=== PATIENT | male | born 1970 | race Caucasian/White ===

== ENCOUNTER 2017-04-20 12:53 | Emergency (ER) | payer SELFPAY ==
[2017-04-20 13:19] VITALS: BP 132/91
[2017-04-20] MEDS ORDERED: HYDROCODONE/ACETAMINOPHEN 5-325 MG TABLET PO ONE (13:45)
--- NOTE | 2017-04-20 13:48 | ER Document Report ---
ED General - General Chief Complaint: Head Injury Stated Complaint: FALL/NECK PAIN Time Seen by Provider: 04/20/17 13:41 Mode of Arrival: Ambulatory Information source: Patient Notes: 46-year-old male presents with complaints of headache neck pain after mechanical fall yesterday at 8 PM. Patient notes he tripped on on steps striking his head, he admits to achiness in his neck. Patient has been ambulating with no difficulty denies any neurological deficits Patient denies any blood thinner use TRAVEL OUTSIDE OF THE [place] IN LAST 30 DAYS: No - HPI Onset: Yesterday Onset/Duration: Sudden Quality of pain: Achy Severity: Mild Pain Level: 1 Associated symptoms: Body/muscle aches, Headache Exacerbated by: Movement Relieved by: Denies Similar symptoms previously: Yes Recently seen / treated by doctor: Yes - Related Data Allergies/Adverse Reactions: No Known Allergies Allergy (Verified 05/05/12 15:56) Past Medical History - Social History Smoking Status: Current Every Day Smoker Cigarette use (# per day): Yes Chew tobacco use (# tins/day): No Smoking Education Provided: No Family History: Reviewed & Not Pertinent Patient has suicidal ideation: No Patient has homicidal ideation: No - Past Medical History Cardiac Medical History: Reports: Hx Hypertension Pulmonary Medical History: Reports: Hx COPD Renal/ Medical History: Denies: Hx Peritoneal Dialysis Past Surgical History: Reports: Hx Orthopedic Surgery - back, face, neck - Immunizations Hx Diphtheria, Pertussis, Tetanus Vaccination: No Review of Systems - Review of Systems Notes: REVIEW OF SYSTEMS: CONSTITUTIONAL : Denies fever, chills, or sweats. Denies recent illness. EENT: Admits to neck pain CARDIOVASCULAR: Denies chest pain. Denies palpitations or racing or irregular heart beat. Denies ankle edema. RESPIRATORY: Denies cough, cold, or chest congestion. Denies shortness of breath, difficulty breathing, or wheezing. GASTROINTESTINAL: Denies abdominal pain or distention. Denies nausea, vomiting , or diarrhea. Denies blood in vomitus, stools, or per rectum. Denies black, tarry stools. Denies constipation. GENITOURINARY: Denies difficulty urinating, painful urination, burning, frequency, blood in urine, or discharge. MUSCULOSKELETAL: Generalized back stiffness SKIN: Denies rash, lesions or sores. HEMATOLOGIC : Denies easy bruising or bleeding. LYMPHATIC: Denies swollen, enlarged glands. NEUROLOGICAL: Admits to headache. PSYCHIATRIC: Denies anxiety or stress. Denies depression, suicidal ideation, or homicidal ideation. ALL OTHER SYSTEMS REVIEWED AND NEGATIVE. Dictation was performed using [employer] voice recognition software PHYSICAL EXAMINATION: GENERAL: Thin appearing male in no acute distress. HEAD: Atraumatic, normocephalic. EYES: Pupils equal round and reactive to light, extraocular movements intact, sclera anicteric, conjunctiva are normal. ENT: Nares patent, oropharynx clear without exudates. Moist mucous membranes. NECK: C-collar immediately placed LUNGS: Breath sounds clear to auscultation bilaterally and equal. No wheezes rales or rhonchi. HEART: Regular rate and rhythm without murmurs ABDOMEN: Soft, nontender, nondistended abdomen. No guarding, no rebound. No masses appreciated. Musculoskeletal: Generalized tenderness of the neck NEUROLOGICAL: Cranial nerves grossly intact. Normal speech, normal gait. Normal sensory, motor exams PSYCH: Normal mood, normal affect. SKIN: Warm, Dry, normal turgor, no rashes or lesions noted. Physical Exam - Vital signs Vitals: Temp Pulse Resp BP Pulse Ox 98.4 F 87 20 132/91 H 97 04/20/17 13:15 04/20/17 13:15 04/20/17 13:15 04/20/17 13:15 04/20/17 13:15 Course - Re-evaluation Re-evalutation: 04/20/17 13:48 No obvious deformities noted no neurologic deficits are noted patient has no cauda equina concerns. CT head and neck have been ordered 04/20/17 15:07 CT head and neck were negative patient was cleared will be given follow-up with primary care physician otherwise looks well is in no distress no neurological deficits no neurological concerns After performing a Medical Screening Examination, I estimate there is LOW risk for EXPANDING OR RUPTURED ABDOMINAL AORTIC ANEURYSM, CAUDA EQUINA SYNDROME, EPIDURAL MASS LESION, or HERNIATED DISK CAUSING SEVERE SPINAL STENOSIS, thus I consider the discharge disposition reasonable. I have reevaluated this patient multiple times and no significant life threatening changes are noted. The patient and I have discussed the diagnosis and risks, and we agree with discharging home and close follow-up. We also discussed returning to the Emergency Department immediately if new or worsening symptoms occur with the understanding that symptoms and presentations can change. We have discussed the symptoms which are most concerning (e.g., saddle anesthesia, urinary or bowel incontinence or retention, changing or worsening pain) that necessitate immediate return. - Vital Signs Vital signs: Temp Pulse Resp BP Pulse Ox 98.4 F 87 20 132/91 H 97 04/20/17 13:15 04/20/17 13:15 04/20/17 13:15 04/20/17 13:15 04/20/17 13:15 - Diagnostic Test Radiology reviewed: Image reviewed, Reports reviewed - no acute abnormaltiies Discharge - Discharge Clinical Impression: Neck pain Fall Qualifiers: Encounter type: initial encounter Qualified Code(s): W19.XXXA - Unspecified fall, initial encounter Back pain Qualifiers: Back pain location: back pain in unspecified location Chronicity: chronic Back pain laterality: bilateral Qualified Code(s): M54.9 - Dorsalgia, unspecified; G89.29 - Other chronic pain Condition: Stable Disposition: HOME, SELF-CARE Instructions: Chronic Back Pain ([facility]), Low Back Pain ([facility]) Prescriptions: Hydrocodone/Acetaminophen [[place] 5-325 mg Tablet] 1 tab PO Q6 #14 tablet Referrals: ROLAND CAST MD [ACTIVE STAFF] - Follow up as needed JUDY GUTIÉRREZ MD [ACTIVE STAFF] - Follow up as needed
--- NOTE | 2017-04-20 14:34 | RADIOLOGY REPORT (SQ) ---
EXAM DESCRIPTION: CT HEAD WITHOUT COMPLETED DATE/TIME: 04/20/2017 2:18 pm REASON FOR STUDY: fall last night, hx c fracture COMPARISON: October 2012 TECHNIQUE: Axial images acquired through the brain without intravenous contrast. Images reviewed wi th bone, brain and subdural windows. Images stored on PACS. All CT scanners at this facility use dose modulation, iterative reconstruction, and/or weight based d osing when appropriate to reduce radiation dose to as low as reasonably achievable (ALARA). [facility]: Dose Right [facility]: CareDose [facility]: Dose Right [facility]: Teradose 4D [facility]: Smart Bee Shield RADIATION DOSE: Up-to-date CT equipment and radiation dose reduction techniques were employed. CTDIv ol: 62.0 mGy. DLP: 1163 mGy-cm. mGy. LIMITATIONS: None. FINDINGS: VENTRICLES: Normal size and contour. CEREBRUM: No masses. No hemorrhage. No midline shift. Normal juan/white matter differentiation. N o evidence for acute infarction. CEREBELLUM: No masses. No hemorrhage. No alteration of density. No evidence for acute infarction. EXTRAAXIAL SPACES: No fluid collections. No masses. ORBITS AND GLOBE: No intra- or extraconal masses. Normal contour of globe without masses. CALVARIUM: No fracture. PARANASAL SINUSES: No fluid or mucosal thickening. SOFT TISSUES: No mass or hematoma. OTHER: The previously described bony deformity of the right maxillary antra appears unchanged. IMPRESSION: No significant intracranial abnormalities were identified. Other findings as noted abov e TECHNICAL DOCUMENTATION: JOB ID: [id number] Quality ID # [id number]: Final reports with documentation of one or more dose reduction techniques (e.g., Au tomated exposure control, adjustment of the mA and/or kV according to patient size, use of iterative reconstruction technique) 2010 [employer]- All Rights Reserved
--- NOTE | 2017-04-20 15:01 | RADIOLOGY REPORT (SQ) ---
EXAM DESCRIPTION: CT CERVICAL SPINE WITHOUT COMPLETED DATE/TIME: 04/20/2017 2:18 pm REASON FOR STUDY: fall last night, hx c fracture COMPARISON: None. TECHNIQUE: Axial images acquired through the cervical spine without intravenous contrast. Images re viewed with lung, soft tissue and bone windows. Reconstructed coronal and sagittal MPR images review ed. Images stored on PACS. All CT scanners at this facility use dose modulation, iterative reconstruction, and/or weight based d osing when appropriate to reduce radiation dose to as low as reasonably achievable (ALARA). [facility]: Dose Right [facility]: CareDose [facility]: Dose Right [facility]: Teradose 4D [facility]: Smart [place] RADIATION DOSE: Up-to-date CT equipment and radiation dose reduction techniques were employed. CTDIv ol: 15.2 mGy. DLP: 298 mGy-cm. mGy. LIMITATIONS: None. FINDINGS: ALIGNMENT: Anatomic. MINERALIZATION: Normal. VERTEBRAL BODIES: No fractures or dislocation. DISCS: At C5-6, mild diffuse posterior disc bulging and bony spurring is present. No central or righ t foraminal narrowing. Moderate left foraminal narrowing from facet and uncovertebral hypertrophy. FACETS, LATERAL MASSES, POSTERIOR ELEMENTS: No fractures. No dislocation. No acute findings. HARDWARE: None in the spine. VISUALIZED RIBS: No fractures. LUNG APICES AND SOFT TISSUES: Biapical bullae or blebs. OTHER: Minimal fluid right mastoid air cells IMPRESSION: No acute findings. Degenerative disc changes at C5-6. TECHNICAL DOCUMENTATION: JOB ID: [id number] Quality ID # [id number]: Final reports with documentation of one or more dose reduction techniques (e.g., Au tomated exposure control, adjustment of the mA and/or kV according to patient size, use of iterative reconstruction technique) 2010 [employer]- All Rights Reserved
== END 2017-04-20 15:25 | disposition home or self-care (01) ==
LOC: ER 12:53
DX: M54.2 Cervicalgia (principal); M54.9 Dorsalgia, unspecified; G89.29 Other chronic pain; R51 Headache; W01.0XXA Fall on same level from slipping, tripping and stumbling without subsequent striking against object, initial encounter; F17.210 Nicotine dependence, cigarettes, uncomplicated
CPT/HCPCS: 99283; 70450; 72125; L0120

== ENCOUNTER 2020-05-03 00:52 | Emergency (ER) | payer SELFPAY ==
[2020-05-03] MEDS ORDERED: ACETAMINOPHEN 325 MG TABLET PO ONE (03:17)
--- NOTE | 2020-05-03 06:27 | RADIOLOGY REPORT (SQ) ---
Left ankle radiographs: 05/03/2020 5:26 AM CDT HISTORY: 49-year-old patient with left ankle pain . COMPARISON: None available TECHNIQUE: AP, lateral, mortise views of the left ankle were obtained. FINDINGS: There are no findings to suggest an acute fracture or subluxation within the left ankle. No abnormal soft tissue swelling is seen. No abnormal calcification, periarticular osteopenia, or gross erosions are seen. The joint spaces are preserved. IMPRESSION: There are no findings to suggest an acute fracture or subluxation within the left ankle.
[2020-05-03] MEDS ORDERED: HYDROMORPHONE HCL INJ/PF 2 MG/ML AMPULE IM ONE (07:39)
[2020-05-03] MEDS ORDERED: LIDOCAINE 1%/EPINEPHRINE INJ 20 ML VIAL INJ ONE (07:39)
--- NOTE | 2020-05-03 08:11 | ER Document Report ---
ED General - General Chief Complaint: Ankle Pain Stated Complaint: BITE/FOOT SWELLING Time Seen by Provider: 05/03/20 07:38 Primary Care Provider: [facility] [Outside] - Follow up as needed Notes: Patient presents with 2 to 3 days left ankle pain and swelling. He says that he got bit by something in the grass possibly fire ants, and afterward began having extreme swelling and pain. He can bear weight but it hurts. No fever no chills. Active heroin user. Last HIV test hepatitis has been in the distant past, smokes every day and has no primary care provider. Denies fever chills. TRAVEL OUTSIDE OF THE [place] IN LAST 30 DAYS: No - Related Data Allergies/Adverse Reactions: No Known Allergies Allergy (Verified 05/03/20 03:12) Past Medical History - General Information source: Patient - Social History Smoking Status: Current Every Day Smoker Smoking Education Provided: Yes - The patient ED visit today was directly related to their abuse of tobacco. Frequency of alcohol use: None Drug Abuse: Marijuana Family History: Reviewed & Not Pertinent - Past Medical History Cardiac Medical History: Reports: Hx Hypertension Pulmonary Medical History: Reports: Hx COPD Renal/ Medical History: Denies: Hx Peritoneal Dialysis Past Surgical History: Reports: Hx Orthopedic Surgery - back, face, neck - Immunizations Hx Diphtheria, Pertussis, Tetanus Vaccination: No Review of Systems - Review of Systems Notes: REVIEW OF SYSTEMS GEN: Denies fever, chills, weight loss ENT: Denies sore throat, nasal discharge, ear pain EYES: Denies blurry vision, eye pain, discharge CV: Denies chest pain, palpitations, edema RESP: Denies cough, shortness of breath, wheezing GI: Denies abdominal pain, nausea, vomiting, diarrhea MSK: Ankle swelling SKIN: Redness left lower extremity LYMPH: Denies swollen glands/lymph nodes NEURO: Denies headache, focal weakness or numbness, dizziness PSYCH: Denies depression, suicidal or homicidal ideation PHYSICAL EXAMINATION General: No acute distress, well-nourished Head: Atraumatic, normocephalic ENT: Mouth normal, oropharynx moist, no exudates or tonsillar enlargement Eyes: Conjunctiva normal, pupils equal, lids normal Neck: No JVD, supple, no guarding CVS: Normal rate, regular rhythm, no murmurs Resp: No resp distress, equal and normal breath sounds bilaterally GI: Nondistended, soft, no tenderness to palpation, no rebound or guarding Ext: Edema and possible effusion of left ankle with mild overlying redness most probably on the medial foot range of motion is preserved but painful and axial loading is nontender. Distal pulses are intact. T Back: No CVA or midline TTP Skin: No rash, warm Lymphatic: No lymphadeopathy noted Neuro: Awake, alert. Face symmetric. GCS 15. Physical Exam - Vital signs Vitals: Temp Pulse Resp BP Pulse Ox 98.8 F 82 12 132/73 H 96 05/03/20 01:03 05/03/20 01:03 05/03/20 01:03 05/03/20 01:03 05/03/20 01:03 Course - Re-evaluation Re-evalutation: 05/03/20 08:13 Left ankle pain and swelling after bug bites in the setting of active heroin use No fever, no cardiac murmur. Doubt endocarditis. Based on this does not require labs or culture. Attempted arthrocentesis to rule out septic joint but there is no fluid, and without a fever or fluid I think this diagnosis is quite unlikely especially given that he has an alternative diagnosis of cellulitis in the setting of an ant bite Going start him on doxy elevate the leg and if he gets any worse he will return to the ED for a full septic joint work-up. We discussed smoking cessation and substance use treatment and requisite outpatient testing for hepatitis and HIV Insert discharge - Vital Signs Vital signs: Temp Pulse Resp BP Pulse Ox 98.3 F 68 24 H 112/76 98 05/03/20 07:55 05/03/20 05:08 05/03/20 05:08 05/03/20 05:08 05/03/20 05:08 Procedures - Joint Aspiration Left Ankle Time completed: 08:12 Consent obtained: Yes - Verbal Joint aspiration pre-procedure: Betadine prep applied Anesthetic type: 1% Lidocaine w/epi mL's of anesthetic: 2 Needle size: 18 Amount/type of drainage: No drainage obtained from the ankle joint with certain entrance based on ne Number of attempts: 2 Complications: No Notes: Failure to obtain fluid, surgeon was in joint. No effusion. Discharge - Discharge Clinical Impression: Left ankle swelling Condition: Good Disposition: HOME, SELF-CARE Instructions: Cellulitis ([facility]) Additional Instructions: As we discussed if the infection redness does not resolve within 48 hours you need to return to the emergency room. If you develop a fever you return to emergency room. We have given you resources regarding quitting smoking and substance use You also need an HIV and hepatitis testing as an outpatient. Prescriptions: Doxycycline Hyclate 100 mg PO DAILY #20 tablet.dr Forms: Smoking Cessation Education Referrals: [facility] [Outside] - Follow up as needed
[2020-05-03 08:28] VITALS: BP 122/86
== END 2020-05-03 08:29 | disposition home or self-care (01) ==
LOC: ER 00:52
DX: M25.472 Effusion, left ankle (principal); M25.572 Pain in left ankle and joints of left foot; F17.200 Nicotine dependence, unspecified, uncomplicated
CPT/HCPCS: 99283; 96372; 73610; 20605; J3490; J1170